=== PATIENT | female | born 1945 | race Hispanic/Latino ===

== ENCOUNTER 2021-09-01 14:54 | Outpatient (CLI) | payer MEDICARE, BC | END 2021-09-01 14:55 | disposition home or self-care (01) | LOC: CSHCT 14:54 | PROVIDERS: ATTEND Neurological Surgery | DX: S06.5X9A Traumatic subdural hemorrhage with loss of consciousness of unspecified duration, initial encounter (principal); S06.5X9D Traumatic subdural hemorrhage with loss of consciousness of unspecified duration, subsequent encounter | CPT/HCPCS: 70450 ==

== ENCOUNTER 2021-10-12 14:02 | Outpatient (CLI) | payer MEDICARE, BC | END 2021-10-12 14:03 | disposition home or self-care (01) | LOC: CSHWCC 14:02 | PROVIDERS: ATTEND Nurse Practitioner Family | DX: L89.321 Pressure ulcer of left buttock, stage 1 (principal); L89.311 Pressure ulcer of right buttock, stage 1 | CPT/HCPCS: 99204; G0463 ==